=== PATIENT | male | born 1990 | race Caucasian/White ===

== ENCOUNTER 2016-12-23 09:11 | Emergency (ER) | payer OTHER ==
[2016-12-23 09:22] VITALS: O2SAT 99
--- NOTE | 2016-12-23 09:47 | ERPHSYRPT ---
- History of Present Illness Time Seen by Provider: 12/23/16 09:35 Source: patient, family Patient Subjective Stated Complaint: pt states he has been having dental pain for several weeks. states pain became worse this morning. Triage Nursing Assessment: pt pink, warm, dry. dental caries noted to mouth. no facial sweliing noted. Physician History: CC: toothache hx: 26 y/[address] patient of Dr Osborne has toothaches. He has had broken teeth for a long time. Lost his dental coverage so came here. Pain worse. No fever. No diff breathing. Pain worse on left side of mouth. Allergies/Adverse Reactions: No Known Drug Allergies Allergy (Unverified 12/23/16 09:22) Home Medications: Dextroamphetamine/Amphetamine [Adderall 20 mg Tablet] 20 mg PO DAILY 12/23/16 [ History] Hx Tetanus, Diphtheria Vaccination/Date Given: Yes (up to date) Hx Influenza Vaccination/Date Given: No Hx Pneumococcal Vaccination/Date Given: No Immunizations Up to Date: Yes - Review of Systems Constitutional: No Fever, No Chills Ears, Nose, & Throat: Mouth Pain Respiratory: No Dyspnea Abdominal/Gastrointestinal: No Vomiting - Past Medical History Pertinent Past Medical History: No - Past Surgical History Past Surgical History: Yes Other Surgical History: wisdom teeth - Social History Smoking Status: Current every day smoker How long have you smoked: 18 Exposure to second hand smoke: Yes Drug Use: none Patient Lives Alone: No - Nursing Vital Signs Nursing Vital Signs: Initial Vital Signs Temperature 97.3 F 12/23/16 09:17 Pulse Rate 86 12/23/16 09:17 Respiratory Rate 18 12/23/16 09:17 Blood Pressure 170/94 12/23/16 09:17 O2 Sat by Pulse Oximetry 99 12/23/16 09:17 - Physical Exam General Appearance: alert Eye Exam: bilateral eye: PERRL, EOMI Throat Exam: dental tenderness (left upper molar and left lower 2nd molar with caries and crack with tenderness. No abscess. Mild gingival disease. No trismus. No facial cellulitis.) Neck Exam: supple Cardiovascular/Respiratory Exam: normal breath sounds, regular rate/rhythm Neurologic Exam: alert, oriented x 3, cooperative Skin Exam: warm, dry SpO2 Interpretation: normal SpO2: 99 Oxygen Delivery: Room Air - Course Nursing assessment & vital signs reviewed: Yes - Progress Progress Note: 12/23/16 09:44 Advised dental follow up. Rx pen and ketoprofen. Counseled pt/family regarding: diagnosis, need for follow-up - Departure Time of Disposition: 09:45 Departure Disposition: Home Clinical Impression: Pain, dental Condition: Stable Critical Care Time: No Referrals: ALBERTO OSBORNE [Primary Care Provider] - Instructions: Dental Pain, Tooth Decay Additional Instructions: You need to recheck your blood pressure with Dr Osborne- if it remains elevated you should not be on adderall. Rx pen vee K. Rx orudis. Follow up with dentist. Prescriptions: Ketoprofen 75 mg PO BID #20 capsule Penicillin V Potassium 500 mg PO QID #40 tablet
[2016-12-23 09:56] VITALS: BP 158/82; PULSE 82
== END 2016-12-23 09:54 | disposition home or self-care (01) ==
LOC: ED 09:11
DX: K08.89 Other specified disorders of teeth and supporting structures (principal)
CPT/HCPCS: 99283